=== PATIENT | female | born 1980 | race Caucasian/White ===

== ENCOUNTER 2017-10-03 14:25 | Emergency (ER) | payer OTHER | END 2017-10-03 17:52 | disposition home or self-care (01) | LOC: D.ER 14:25 | DX: B19.20 Unspecified viral hepatitis C without hepatic coma (principal); K74.60 Unspecified cirrhosis of liver; K21.9 Gastro-esophageal reflux disease without esophagitis ==

== ENCOUNTER 2017-10-12 11:57 | Emergency (ER) | payer OTHER | END 2017-10-12 12:45 | disposition home or self-care (01) | LOC: D.ER 11:57 | DX: R10.11 Right upper quadrant pain (principal); B19.20 Unspecified viral hepatitis C without hepatic coma; K74.60 Unspecified cirrhosis of liver; F17.200 Nicotine dependence, unspecified, uncomplicated ==

== ENCOUNTER 2017-10-15 09:17 | Emergency (ER) | payer OTHER ==
[2017-10-15 10:56] LABS: APPEARANCE CLEAR (CLEAR); BILIRUBIN NEGATIVE (NEGATIVE); COLOR YELLOW (YELLOW); GLUCOSE NEGATIVE (NEGATIVE); KETONE NEGATIVE (NEGATIVE); NITRITE NEGATIVE (NEGATIVE); PROTEIN NEGATIVE (NEGATIVE); SPECIFIC GRAVITY 1.015 (1.005-1.020); UROBILINOGEN NORMAL (NORMAL)
[2017-10-15 10:57] LABS: BASOPHILS 0.3 % (0-2); EOSINOPHILS 1.9 % (0-7); HEMOGLOBIN 13.9 g/dL (12-16); IMMATURE GRANULOCYTES 0.2 % (0-5); MCH 31.4 pg (26.0-34.0); MCHC 33.1 g/dL (31.0-37.0); MEAN PLATELET VOLUME 10.4 fL (7.4-10.4); MONOCYTES 9.5 % (2-11); NEUTROPHILS 68.1 % (40-80); PLATELET COUNT 195 10x3/uL (130-400); RBC 4.42 10x6/uL (4.00-5.40); RDW 12.1 % (11.5-14.5); WBC 5.8 10x3/uL (4.8-10.8)
[2017-10-15 11:12] LABS: ALBUMIN 3.4 g/dL (3.4-5.0); BILIRUBIN - TOTAL 0.2 mg/dL (0.2-1.3); CALCIUM 9.2 mg/dL (8.5-10.1); CARBON DIOXIDE 29.5 mmol/L (21.0-32.0); CREATININE - SERUM 1.1 mg/dL (0.6-1.3); POTASSIUM - SERUM 4.5 mmol/L (3.5-5.1); PROTEIN - SERUM 7.1 g/dL (6.4-8.2)
== END 2017-10-15 13:44 | disposition home or self-care (01) ==
LOC: D.ER 09:17
PROVIDERS: Physician Assistant
DX: R10.11 Right upper quadrant pain (principal); B19.20 Unspecified viral hepatitis C without hepatic coma; F17.200 Nicotine dependence, unspecified, uncomplicated

== ENCOUNTER 2017-10-22 11:04 | Emergency (ER) | payer OTHER | END 2017-10-22 14:12 | disposition home or self-care (01) | LOC: D.ER 11:04 | DX: R10.13 Epigastric pain (principal); B19.20 Unspecified viral hepatitis C without hepatic coma; K21.9 Gastro-esophageal reflux disease without esophagitis; F17.200 Nicotine dependence, unspecified, uncomplicated ==

== ENCOUNTER 2017-10-27 15:42 | Emergency (ER) | payer OTHER | END 2017-10-27 18:11 | disposition home or self-care (01) | LOC: D.ER 15:42 | DX: K02.9 Dental caries, unspecified (principal); K08.89 Other specified disorders of teeth and supporting structures; S02.5XXA Fracture of tooth (traumatic), initial encounter for closed fracture; X58.XXXA Exposure to other specified factors, initial encounter; Y93.89 Activity, other specified; Y92.019 Unspecified place in single-family (private) house as the place of occurrence of the external cause; K05.10 Chronic gingivitis, plaque induced; B19.20 Unspecified viral hepatitis C without hepatic coma ==

== ENCOUNTER 2017-10-29 11:51 | Emergency (ER) | payer OTHER | END 2017-10-29 13:41 | disposition home or self-care (01) | LOC: D.ER 11:51 | DX: K04.7 Periapical abscess without sinus (principal); K08.89 Other specified disorders of teeth and supporting structures; K21.9 Gastro-esophageal reflux disease without esophagitis; B19.20 Unspecified viral hepatitis C without hepatic coma ==

== ENCOUNTER 2017-11-04 19:05 | Emergency (ER) | payer OTHER ==
[2017-11-04 20:11] LABS: BASOPHILS 0.2 % (0-2); EOSINOPHILS 1.2 % (0-7); HEMOGLOBIN 13.9 g/dL (12-16); IMMATURE GRANULOCYTES 0.3 % (0-5); LYMPHOCYTES 33.8 % (15-50); MCH 31.7 pg (26.0-34.0); MCHC 33.9 g/dL (31.0-37.0); MCV 93.4 fL (80.0-100.0); NEUTROPHILS 58.5 % (40-80); RBC 4.39 10x6/uL (4.00-5.40); RDW 12.5 % (11.5-14.5); WBC 10.5 10x3/uL (4.8-10.8)
[2017-11-04 20:18] LABS: PLATELET COUNT 263 10x3/uL (130-400)
[2017-11-04 20:21] LABS: AMYLASE - SERUM 72 U/L (25-115); LIPASE 392 U/L (73-393)
[2017-11-04 20:33] LABS: COLOR PINK (YELLOW)
[2017-11-04 20:34] LABS: APPEARANCE CLOUDY (CLEAR); BACTERIA FEW /hpf (NONE SEEN); BILIRUBIN NEGATIVE (NEGATIVE); EPITHELIAL CELLS 0-5 /hpf (0-5); GLUCOSE NEGATIVE (NEGATIVE); KETONE NEGATIVE (NEGATIVE); NITRITE NEGATIVE (NEGATIVE); PROTEIN NEGATIVE (NEGATIVE); RED CELLS - URINE >50 /hpf (0-5); SPECIFIC GRAVITY 1.015 (1.005-1.020); UROBILINOGEN NORMAL (NORMAL); WHITE CELLS - URINE 0-5 /hpf (0-5)
[2017-11-04 21:34] LABS: ALBUMIN 3.4 g/dL (3.4-5.0); ANION GAP 16.7 mmol/L (8-16); BILIRUBIN - TOTAL 0.1 mg/dL (0.2-1.3); CARBON DIOXIDE 27.6 mmol/L (21.0-32.0); POTASSIUM - SERUM 4.3 mmol/L (3.5-5.1); PROTEIN - SERUM 7.9 g/dL (6.4-8.2)
== END 2017-11-04 22:43 | disposition home or self-care (01) ==
LOC: D.ER 19:05
PROVIDERS: Emergency Medicine
DX: R10.9 Unspecified abdominal pain (principal); N39.0 Urinary tract infection, site not specified; F12.90 Cannabis use, unspecified, uncomplicated

== ENCOUNTER 2017-11-10 14:10 | Emergency (ER) | payer OTHER ==
[2017-11-10 17:31] LABS: BASOPHILS 0.2 % (0-2); EOSINOPHILS 1.2 % (0-7); HEMATOCRIT 41.5 % (36.0-48.0); HEMOGLOBIN 13.8 g/dL (12-16); IMMATURE GRANULOCYTES 0.1 % (0-5); LYMPHOCYTES 35.4 % (15-50); MCH 31.4 pg (26.0-34.0); MCHC 33.3 g/dL (31.0-37.0); MCV 94.3 fL (80.0-100.0); MEAN PLATELET VOLUME 10.5 fL (7.4-10.4); MONOCYTES 4.4 % (2-11); NEUTROPHILS 58.7 % (40-80); RDW 12.8 % (11.5-14.5); WBC 8.3 10x3/uL (4.8-10.8)
[2017-11-10 17:32] LABS: PLATELET COUNT 206 10x3/uL (130-400)
== END 2017-11-10 18:09 | disposition home or self-care (01) ==
LOC: D.ER 14:10
PROVIDERS: Physician Assistant Medical
DX: K74.60 Unspecified cirrhosis of liver (principal); B19.20 Unspecified viral hepatitis C without hepatic coma; F17.200 Nicotine dependence, unspecified, uncomplicated

== ENCOUNTER 2017-11-14 19:51 | Emergency (ER) | payer OTHER ==
[2017-11-14 20:32] LABS: APPEARANCE HAZY (CLEAR); BILIRUBIN NEGATIVE (NEGATIVE); COLOR YELLOW (YELLOW); GLUCOSE NEGATIVE (NEGATIVE); KETONE NEGATIVE (NEGATIVE); NITRITE NEGATIVE (NEGATIVE); PROTEIN NEGATIVE (NEGATIVE); SPECIFIC GRAVITY 1.015 (1.005-1.020); UROBILINOGEN NORMAL (NORMAL)
[2017-11-14 20:34] LABS: AMYLASE - SERUM 73 U/L (25-115); LIPASE 404 U/L (73-393)
[2017-11-14 20:42] LABS: BACTERIA FEW /hpf (NONE SEEN); RED CELLS - URINE 0-5 /hpf (0-5)
[2017-11-14 20:46] LABS: HEMATOCRIT 42.1 % (36.0-48.0); HEMOGLOBIN 14.2 g/dL (12-16); LYMPHOCYTES 44.4 % (15-50); MCH 30.7 pg (26.0-34.0); MCHC 33.7 g/dL (31.0-37.0); MCV 91.1 fL (80.0-100.0); MEAN PLATELET VOLUME 10.7 fL (7.4-10.4); NEUTROPHILS 50.5 % (40-80); PLATELET COUNT 222 10x3/uL (130-400); RBC 4.62 10x6/uL (4.00-5.40); WBC 8.2 10x3/uL (4.8-10.8)
== END 2017-11-14 21:35 | disposition home or self-care (01) ==
LOC: D.ER 19:51
PROVIDERS: Family Medicine
DX: B19.20 Unspecified viral hepatitis C without hepatic coma (principal); N39.0 Urinary tract infection, site not specified

== ENCOUNTER 2017-11-17 15:46 | Emergency (ER) | payer OTHER | END 2017-11-17 17:55 | disposition left against medical advice (07) | LOC: D.ER 15:46 | DX: R10.84 Generalized abdominal pain (principal) ==

== ENCOUNTER 2017-11-18 14:36 | Emergency (ER) | payer OTHER ==
[2017-11-18 15:17] LABS: APPEARANCE CLEAR (CLEAR); BILIRUBIN NEGATIVE (NEGATIVE); COLOR YELLOW (YELLOW); GLUCOSE NEGATIVE (NEGATIVE); KETONE NEGATIVE (NEGATIVE); NITRITE NEGATIVE (NEGATIVE); PROTEIN NEGATIVE (NEGATIVE); SPECIFIC GRAVITY 1.015 (1.005-1.020); UROBILINOGEN NORMAL (NORMAL)
[2017-11-18 15:20] LABS: BACTERIA MODERATE /hpf (NONE SEEN); MUCUS <1+ /lpf (NONE SEEN); RED CELLS - URINE 0-5 /hpf (0-5)
== END 2017-11-18 15:49 | disposition home or self-care (01) ==
LOC: D.ER 14:36
PROVIDERS: Emergency Medicine
DX: R10.9 Unspecified abdominal pain (principal); B19.20 Unspecified viral hepatitis C without hepatic coma; K76.9 Liver disease, unspecified; F17.200 Nicotine dependence, unspecified, uncomplicated

== ENCOUNTER 2017-11-25 13:41 | Emergency (ER) | payer OTHER ==
[2017-11-25 14:45] LABS: BASOPHILS 0.3 % (0-2); EOSINOPHILS 1.4 % (0-7); HEMOGLOBIN 14.6 g/dL (12-16); IMMATURE GRANULOCYTES 0.5 % (0-5); MCH 30.8 pg (26.0-34.0); MCHC 33.2 g/dL (31.0-37.0); MCV 92.8 fL (80.0-100.0); MEAN PLATELET VOLUME 11.2 fL (7.4-10.4); MONOCYTES 4.1 % (2-11); NEUTROPHILS 66.7 % (40-80); RBC 4.74 10x6/uL (4.00-5.40); RDW 12.5 % (11.5-14.5); WBC 8.9 10x3/uL (4.8-10.8)
[2017-11-25 14:49] LABS: PLATELET COUNT 101 10x3/uL (130-400)
[2017-11-25 14:55] LABS: ALBUMIN 3.6 g/dL (3.4-5.0); ANION GAP 9.9 mmol/L (8-16); BILIRUBIN - TOTAL 0.2 mg/dL (0.2-1.3); CALCIUM 9.5 mg/dL (8.5-10.1); CARBON DIOXIDE 30.3 mmol/L (21.0-32.0); CREATININE - SERUM 1.1 mg/dL (0.6-1.3); POTASSIUM - SERUM 4.2 mmol/L (3.5-5.1); PROTEIN - SERUM 7.2 g/dL (6.4-8.2)
[2017-11-25 15:48] LABS: COLOR YELLOW (YELLOW)
[2017-11-25 15:49] LABS: APPEARANCE HAZY (CLEAR); BILIRUBIN NEGATIVE (NEGATIVE); GLUCOSE NEGATIVE (NEGATIVE); KETONE NEGATIVE (NEGATIVE); NITRITE NEGATIVE (NEGATIVE); PROTEIN NEGATIVE (NEGATIVE); UROBILINOGEN NORMAL (NORMAL)
[2017-11-25 15:50] LABS: BACTERIA MODERATE /hpf (NONE SEEN); EPITHELIAL CELLS OCC /hpf (0-5); RED CELLS - URINE OCC /hpf (0-5); WHITE CELLS - URINE 0-5 /hpf (0-5)
== END 2017-11-25 18:18 | disposition home or self-care (01) ==
LOC: D.ER 13:41
PROVIDERS: Family Medicine
DX: N39.0 Urinary tract infection, site not specified (principal); R10.9 Unspecified abdominal pain; R11.2 Nausea with vomiting, unspecified; B19.20 Unspecified viral hepatitis C without hepatic coma; K76.9 Liver disease, unspecified; F17.200 Nicotine dependence, unspecified, uncomplicated

== ENCOUNTER 2017-11-27 18:15 | Emergency (ER) | payer OTHER | END 2017-11-27 20:49 | disposition home or self-care (01) | LOC: D.ER 18:15 | DX: R10.9 Unspecified abdominal pain (principal); K74.60 Unspecified cirrhosis of liver; R11.10 Vomiting, unspecified ==

== ENCOUNTER 2017-11-28 14:16 | Emergency (ER) | payer OTHER ==
[2017-11-28 15:06] LABS: BASOPHILS 0.2 % (0-2); EOSINOPHILS 2.5 % (0-7); HEMATOCRIT 40.6 % (36.0-48.0); HEMOGLOBIN 13.4 g/dL (12-16); LYMPHOCYTES 40.4 % (15-50); MCH 31.2 pg (26.0-34.0); MCV 94.4 fL (80.0-100.0); MEAN PLATELET VOLUME 10.4 fL (7.4-10.4); MONOCYTES 5.1 % (2-11); NEUTROPHILS 51.8 % (40-80); RDW 12.8 % (11.5-14.5); WBC 9.1 10x3/uL (4.8-10.8)
[2017-11-28 15:17] LABS: PLATELET COUNT 207 10x3/uL (130-400)
[2017-11-28 15:20] LABS: ALBUMIN 3.3 g/dL (3.4-5.0); ANION GAP 8.7 mmol/L (8-16); BILIRUBIN - TOTAL 0.2 mg/dL (0.2-1.3); CALCIUM 9.1 mg/dL (8.5-10.1); CARBON DIOXIDE 29.2 mmol/L (21.0-32.0); CREATININE - SERUM 1.3 mg/dL (0.6-1.3); POTASSIUM - SERUM 3.9 mmol/L (3.5-5.1); PROTEIN - SERUM 7.3 g/dL (6.4-8.2)
[2017-11-28 18:09] LABS: APPEARANCE CLEAR (CLEAR); BACTERIA FEW /hpf (NONE SEEN); BILIRUBIN NEGATIVE (NEGATIVE); COLOR YELLOW (YELLOW); EPITHELIAL CELLS 0-5 /hpf (0-5); GLUCOSE NEGATIVE (NEGATIVE); HCG URINE NEGATIVE (NEGATIVE); KETONE NEGATIVE (NEGATIVE); NITRITE NEGATIVE (NEGATIVE); PROTEIN NEGATIVE (NEGATIVE); RED CELLS - URINE 0-5 /hpf (0-5); SPECIFIC GRAVITY 1.015 (1.005-1.020); UROBILINOGEN NORMAL (NORMAL)
== END 2017-11-28 19:08 | disposition home or self-care (01) ==
LOC: D.ER 14:16
PROVIDERS: Emergency Medicine
DX: E86.0 Dehydration (principal); R55 Syncope and collapse; F17.200 Nicotine dependence, unspecified, uncomplicated; K76.9 Liver disease, unspecified

== ENCOUNTER 2017-11-29 16:08 | Emergency (ER) | payer OTHER ==
[2017-11-29 17:36] LABS: BASOPHILS 0.2 % (0-2); EOSINOPHILS 2.7 % (0-7); HEMATOCRIT 39.5 % (36.0-48.0); HEMOGLOBIN 12.6 g/dL (12-16); IMMATURE GRANULOCYTES 0.1 % (0-5); LYMPHOCYTES 39.6 % (15-50); MCH 29.9 pg (26.0-34.0); MCHC 31.9 g/dL (31.0-37.0); MCV 93.6 fL (80.0-100.0); MEAN PLATELET VOLUME 10.4 fL (7.4-10.4); MONOCYTES 4.8 % (2-11); NEUTROPHILS 52.6 % (40-80); PLATELET COUNT 195 10x3/uL (130-400); RBC 4.22 10x6/uL (4.00-5.40); RDW 12.7 % (11.5-14.5); WBC 8.2 10x3/uL (4.8-10.8)
== END 2017-11-29 18:27 | disposition home or self-care (01) ==
LOC: D.ER 16:08
PROVIDERS: Nurse Practitioner Family
DX: R10.11 Right upper quadrant pain (principal); K74.60 Unspecified cirrhosis of liver

== ENCOUNTER 2017-12-02 14:16 | Emergency (ER) | payer OTHER ==
[2017-12-02 14:52] LABS: APPEARANCE CLEAR (CLEAR); BILIRUBIN NEGATIVE (NEGATIVE); COLOR YELLOW (YELLOW); GLUCOSE NEGATIVE (NEGATIVE); KETONE NEGATIVE (NEGATIVE); NITRITE NEGATIVE (NEGATIVE); PROTEIN NEGATIVE (NEGATIVE); UROBILINOGEN NORMAL (NORMAL)
[2017-12-02 16:12] LABS: BASOPHILS 0.2 % (0-2); EOSINOPHILS 1.5 % (0-7); HEMATOCRIT 39.7 % (36.0-48.0); HEMOGLOBIN 13.2 g/dL (12-16); IMMATURE GRANULOCYTES 0.1 % (0-5); LYMPHOCYTES 32.2 % (15-50); MCHC 33.2 g/dL (31.0-37.0); MCV 93.2 fL (80.0-100.0); MEAN PLATELET VOLUME 10.5 fL (7.4-10.4); MONOCYTES 4.8 % (2-11); NEUTROPHILS 61.2 % (40-80); PLATELET COUNT 187 10x3/uL (130-400); RBC 4.26 10x6/uL (4.00-5.40); RDW 12.8 % (11.5-14.5); WBC 9.2 10x3/uL (4.8-10.8)
[2017-12-02 16:50] LABS: ALBUMIN 3.2 g/dL (3.4-5.0); ANION GAP 10.5 mmol/L (8-16); BILIRUBIN - TOTAL 0.29 mg/dL (0.2-1.3); CALCIUM 8.8 mg/dL (8.5-10.1); CARBON DIOXIDE 28.7 mmol/L (21.0-32.0); CREATININE - SERUM 1.2 mg/dL (0.6-1.3); POTASSIUM - SERUM 4.2 mmol/L (3.5-5.1); PROTEIN - SERUM 7.3 g/dL (6.4-8.2)
== END 2017-12-02 17:48 | disposition home or self-care (01) ==
LOC: D.ER 14:16
PROVIDERS: Emergency Medicine; Physician Assistant
DX: R10.11 Right upper quadrant pain (principal); F17.200 Nicotine dependence, unspecified, uncomplicated; K76.9 Liver disease, unspecified

== ENCOUNTER 2017-12-09 11:39 | Emergency (ER) | payer OTHER ==
[2017-12-09 12:43] LABS: APPEARANCE CLOUDY (CLEAR); BILIRUBIN NEGATIVE (NEGATIVE); COLOR YELLOW (YELLOW); GLUCOSE NEGATIVE (NEGATIVE); KETONE NEGATIVE (NEGATIVE); NITRITE NEGATIVE (NEGATIVE); PROTEIN NEGATIVE (NEGATIVE); SPECIFIC GRAVITY 1.015 (1.005-1.020); UROBILINOGEN NORMAL (NORMAL)
[2017-12-09 12:45] LABS: BACTERIA MODERATE /hpf (NONE SEEN); MUCUS >1+ /lpf (NONE SEEN); RED CELLS - URINE OCC /hpf (0-5)
== END 2017-12-09 13:17 | disposition home or self-care (01) ==
LOC: D.ER 11:39
PROVIDERS: Emergency Medicine
DX: N39.0 Urinary tract infection, site not specified (principal); K76.9 Liver disease, unspecified

== ENCOUNTER 2017-12-20 20:01 | Inpatient (IN) | payer OTHER ==
[~2017-12-20] VITALS: Ht 152.4 cm; Wt 86.2 kg
[2017-12-20 20:24] LABS: APPEARANCE HAZY (CLEAR); BACTERIA NONE SEEN /hpf (NONE SEEN); BILIRUBIN NEGATIVE (NEGATIVE); COLOR PINK (YELLOW); EPITHELIAL CELLS 0-5 /hpf (0-5); GLUCOSE NEGATIVE (NEGATIVE); KETONE NEGATIVE (NEGATIVE); NITRITE NEGATIVE (NEGATIVE); PROTEIN NEGATIVE (NEGATIVE); RED CELLS - URINE >50 /hpf (0-5); SPECIFIC GRAVITY 1.005 (1.005-1.020); UROBILINOGEN NORMAL (NORMAL); WHITE CELLS - URINE 0-5 /hpf (0-5)
[2017-12-20 21:05] LABS: BASOPHILS 0.3 % (0-2); EOSINOPHILS 0.9 % (0-7); HEMATOCRIT 39.1 % (36.0-48.0); HEMOGLOBIN 12.5 g/dL (12-16); IMMATURE GRANULOCYTES 1.1 % (0-5); LYMPHOCYTES 30.1 % (15-50); MCH 30.4 pg (26.0-34.0); MCV 95.1 fL (80.0-100.0); MEAN PLATELET VOLUME 10.5 fL (7.4-10.4); MONOCYTES 5.3 % (2-11); NEUTROPHILS 62.3 % (40-80); PLATELET COUNT 218 10x3/uL (130-400); RBC 4.11 10x6/uL (4.00-5.40); RDW 12.7 % (11.5-14.5); WBC 10.8 10x3/uL (4.8-10.8)
[2017-12-20 21:35] LABS: ALBUMIN 2.6 g/dL (3.4-5.0); ALKALINE PHOSPHATASE 70 U/L (46-116); ALT (SGPT) 24 U/L (10-68); BILIRUBIN - TOTAL 0.33 mg/dL (0.2-1.3); CALC OSMOLALITY 280 mosm/kg (275-300); CALCIUM 9.3 mg/dL (8.5-10.1); CARBON DIOXIDE 36.1 mmol/L (21.0-32.0); CHLORIDE - SERUM 99 mmol/L (98-107); GLUCOSE 91 mg/dL (74-106); PROTEIN - SERUM 7.4 g/dL (6.4-8.2); SODIUM 139 mmol/L (136-145); UREA NITROGEN 20 mg/dL (7-18); eGFR NON AFRICAN AMERICAN 67 mL/min (90-120)
[2017-12-20 21:43] LABS: CREATINE KINASE 53 UL (21-215); MAGNESIUM - SERUM 1.9 mg/dL (1.8-2.4); PRO BNP 343 pg/mL (0-125); TROPONIN-I < 0.017 ng/mL (0.000-0.060)
[2017-12-20 21:44] LABS: HCG URINE NEGATIVE (NEGATIVE)
[2017-12-21 13:15] LABS: UDS - AMPHET NEGATIVE QUAL (NEGATIVE); UDS - BARB NEGATIVE QUAL (NEGATIVE); UDS - BENZO NEGATIVE QUAL (NEGATIVE); UDS - COCAINE NEGATIVE QUAL (NEGATIVE); UDS - OPIATE POSITIVE QUAL (NEGATIVE); UDS - PCP NEGATIVE QUAL (NEGATIVE); UDS - THC NEGATIVE QUAL (NEGATIVE)
== END 2017-12-21 13:44 | disposition left against medical advice (07) | DRG 193 ==
LOC: D.ER 20:01 → D.EDHOLD 23:29
PROVIDERS: Emergency Medicine; Physician Assistant Medical
DX: J18.9 Pneumonia, unspecified organism (principal); J96.01 Acute respiratory failure with hypoxia; J44.0 Chronic obstructive pulmonary disease with (acute) lower respiratory infection; B19.20 Unspecified viral hepatitis C without hepatic coma; I10 Essential (primary) hypertension; Z72.0 Tobacco use

== ENCOUNTER 2018-01-01 15:40 | Emergency (ER) | payer OTHER | END 2018-01-01 17:39 | disposition home or self-care (01) | LOC: D.ER 15:40 | DX: K04.7 Periapical abscess without sinus (principal); K08.89 Other specified disorders of teeth and supporting structures; F17.200 Nicotine dependence, unspecified, uncomplicated ==

== ENCOUNTER 2018-01-12 20:12 | Emergency (ER) | payer OTHER | END 2018-01-12 22:02 | disposition home or self-care (01) | LOC: D.ER 20:12 | DX: R10.84 Generalized abdominal pain (principal) ==

== ENCOUNTER 2018-01-13 12:59 | Emergency (ER) | payer OTHER ==
[2018-01-13 13:53] LABS: BASOPHILS 0.3 % (0-2); EOSINOPHILS 1.6 % (0-7); HEMATOCRIT 38.9 % (36.0-48.0); HEMOGLOBIN 12.9 g/dL (12-16); IMMATURE GRANULOCYTES 0.2 % (0-5); MCH 30.7 pg (26.0-34.0); MCHC 33.2 g/dL (31.0-37.0); MCV 92.6 fL (80.0-100.0); MEAN PLATELET VOLUME 10.3 fL (7.4-10.4); MONOCYTES 5.5 % (2-11); NEUTROPHILS 57.4 % (40-80); PLATELET COUNT 207 10x3/uL (130-400); RDW 13.3 % (11.5-14.5); WBC 6.2 10x3/uL (4.8-10.8)
[2018-01-13 13:58] LABS: ALBUMIN 3.2 g/dL (3.4-5.0); BILIRUBIN - TOTAL 0.42 mg/dL (0.2-1.3); CALCIUM 9.1 mg/dL (8.5-10.1); CARBON DIOXIDE 27.6 mmol/L (21.0-32.0); POTASSIUM - SERUM 3.6 mmol/L (3.5-5.1); PROTEIN - SERUM 7.1 g/dL (6.4-8.2)
== END 2018-01-13 14:22 | disposition home or self-care (01) ==
LOC: D.ER 12:59
PROVIDERS: Emergency Medicine
DX: B19.20 Unspecified viral hepatitis C without hepatic coma (principal); F17.200 Nicotine dependence, unspecified, uncomplicated

== ENCOUNTER 2018-02-03 20:49 | Emergency (ER) | payer OTHER ==
[2018-02-03 21:42] LABS: APPEARANCE CLEAR (CLEAR); BILIRUBIN NEGATIVE (NEGATIVE); COLOR YELLOW (YELLOW); GLUCOSE NEGATIVE (NEGATIVE); KETONE NEGATIVE (NEGATIVE); NITRITE NEGATIVE (NEGATIVE); PROTEIN NEGATIVE (NEGATIVE); SPECIFIC GRAVITY 1.015 (1.005-1.020); UROBILINOGEN NORMAL (NORMAL)
[2018-02-03 21:43] LABS: RED CELLS - URINE OCC /hpf (0-5); WHITE CELLS - URINE 0-5 /hpf (0-5)
[2018-02-03 21:44] LABS: BACTERIA FEW /hpf (NONE SEEN); EPITHELIAL CELLS OCC /hpf (0-5)
[2018-02-03 21:45] LABS: BASOPHILS 0.2 % (0-2); EOSINOPHILS 1.9 % (0-7); HEMATOCRIT 40.1 % (36.0-48.0); HEMOGLOBIN 13.1 g/dL (12-16); IMMATURE GRANULOCYTES 0.1 % (0-5); LYMPHOCYTES 39.2 % (15-50); MCH 30.5 pg (26.0-34.0); MCHC 32.7 g/dL (31.0-37.0); MCV 93.3 fL (80.0-100.0); MEAN PLATELET VOLUME 9.9 fL (7.4-10.4); MONOCYTES 6.2 % (2-11); NEUTROPHILS 52.4 % (40-80); PLATELET COUNT 223 10x3/uL (130-400); RDW 13.2 % (11.5-14.5); WBC 9.3 10x3/uL (4.8-10.8)
[2018-02-03 22:00] LABS: ALBUMIN 3.3 g/dL (3.4-5.0); ANION GAP 13.3 mmol/L (8-16); BILIRUBIN - TOTAL 0.2 mg/dL (0.2-1.3); CALCIUM 8.7 mg/dL (8.5-10.1); CARBON DIOXIDE 25.9 mmol/L (21.0-32.0); CREATININE - SERUM 1.3 mg/dL (0.6-1.3); POTASSIUM - SERUM 4.2 mmol/L (3.5-5.1); PROTEIN - SERUM 7.3 g/dL (6.4-8.2)
== END 2018-02-03 23:29 | disposition home or self-care (01) ==
LOC: D.ER 20:49
PROVIDERS: Emergency Medicine
DX: R10.11 Right upper quadrant pain (principal); K74.60 Unspecified cirrhosis of liver; F17.200 Nicotine dependence, unspecified, uncomplicated; J44.9 Chronic obstructive pulmonary disease, unspecified

== ENCOUNTER 2018-02-04 13:07 | Emergency (ER) | payer OTHER | END 2018-02-04 16:15 | disposition home or self-care (01) | LOC: D.ER 13:07 | DX: R10.11 Right upper quadrant pain (principal); F17.200 Nicotine dependence, unspecified, uncomplicated; J44.9 Chronic obstructive pulmonary disease, unspecified ==

== ENCOUNTER 2018-02-10 13:33 | Emergency (ER) | payer OTHER ==
[2018-02-10 15:02] LABS: APPEARANCE CLEAR (CLEAR); BILIRUBIN NEGATIVE (NEGATIVE); COLOR YELLOW (YELLOW); GLUCOSE NEGATIVE (NEGATIVE); HCG URINE NEGATIVE (NEGATIVE); KETONE NEGATIVE (NEGATIVE); NITRITE NEGATIVE (NEGATIVE); PROTEIN NEGATIVE (NEGATIVE); UROBILINOGEN NORMAL (NORMAL)
[2018-02-10 15:26] LABS: BASOPHILS 0.2 % (0-2); EOSINOPHILS 1.4 % (0-7); HEMATOCRIT 39.2 % (36.0-48.0); IMMATURE GRANULOCYTES 0.1 % (0-5); MCH 30.2 pg (26.0-34.0); MCHC 33.2 g/dL (31.0-37.0); MEAN PLATELET VOLUME 10.1 fL (7.4-10.4); MONOCYTES 5.5 % (2-11); NEUTROPHILS 61.8 % (40-80); PLATELET COUNT 245 10x3/uL (130-400); RBC 4.31 10x6/uL (4.00-5.40); RDW 13.1 % (11.5-14.5); WBC 9.4 10x3/uL (4.8-10.8)
[2018-02-10 15:47] LABS: ALBUMIN 3.1 g/dL (3.4-5.0); ANION GAP 10.9 mmol/L (8-16); BILIRUBIN - TOTAL 0.2 mg/dL (0.2-1.3); CALCIUM 8.8 mg/dL (8.5-10.1); POTASSIUM - SERUM 3.9 mmol/L (3.5-5.1); PROTEIN - SERUM 7.1 g/dL (6.4-8.2)
== END 2018-02-10 17:10 | disposition home or self-care (01) ==
LOC: D.ER 13:33
PROVIDERS: Family Medicine
DX: B19.20 Unspecified viral hepatitis C without hepatic coma (principal); R10.9 Unspecified abdominal pain; F17.200 Nicotine dependence, unspecified, uncomplicated; J44.9 Chronic obstructive pulmonary disease, unspecified

== ENCOUNTER → 2018-02-16 12:59 | Emergency (ER) | payer OTHER | END | disposition left against medical advice (07) | LOC: D.ER 12:59 | DX: Z02.9 Encounter for administrative examinations, unspecified (principal) ==

== ENCOUNTER 2018-03-13 18:21 | Emergency (ER) | payer OTHER ==
[~2018-03-13] VITALS: Ht 152.4 cm; Wt 79.5 kg
[2018-03-13 18:37] VITALS: BP 105/65; Ht 152.4 cm; Wt 79.5 kg
== END 2018-03-13 20:55 | disposition left against medical advice (07) ==
LOC: D.ER 18:21
DX: R52 Pain, unspecified (principal); Z91.81 History of falling

== ENCOUNTER 2018-03-17 15:02 | Emergency (ER) | payer OTHER ==
[~2018-03-17] VITALS: Ht 160 cm; Wt 77.3 kg
[2018-03-17 15:18] VITALS: Ht 160 cm; Wt 77.3 kg
[2018-03-17 15:57] LABS: APPEARANCE CLEAR (CLEAR); COLOR YELLOW (YELLOW); SPECIFIC GRAVITY 1.015 (1.005-1.020)
[2018-03-17 15:58] LABS: BILIRUBIN NEGATIVE (NEGATIVE); GLUCOSE NEGATIVE (NEGATIVE); KETONE NEGATIVE (NEGATIVE); NITRITE NEGATIVE (NEGATIVE); PROTEIN NEGATIVE (NEGATIVE); UROBILINOGEN NORMAL (NORMAL)
[2018-03-17 16:05] LABS: BASOPHILS 0.2 % (0-2); EOSINOPHILS 0.9 % (0-7); HEMATOCRIT 38.2 % (36.0-48.0); HEMOGLOBIN 12.7 g/dL (12-16); IMMATURE GRANULOCYTES 0.1 % (0-5); LYMPHOCYTES 28.1 % (15-50); MCH 29.7 pg (26.0-34.0); MCHC 33.2 g/dL (31.0-37.0); MCV 89.3 fL (80.0-100.0); MEAN PLATELET VOLUME 10.3 fL (7.4-10.4); MONOCYTES 4.8 % (2-11); NEUTROPHILS 65.9 % (40-80); PLATELET COUNT 228 10x3/uL (130-400); RBC 4.28 10x6/uL (4.00-5.40); RDW 13.5 % (11.5-14.5); WBC 8.7 10x3/uL (4.8-10.8)
[2018-03-17 16:23] LABS: ALBUMIN 3.3 g/dL (3.4-5.0); ANION GAP 13.5 mmol/L (8-16); BILIRUBIN - TOTAL 0.23 mg/dL (0.2-1.3); CALCIUM 9.3 mg/dL (8.5-10.1); CARBON DIOXIDE 27.3 mmol/L (21.0-32.0); POTASSIUM - SERUM 3.8 mmol/L (3.5-5.1); PROTEIN - SERUM 7.6 g/dL (6.4-8.2)
[2018-03-17] MEDS ORDERED: HYDROCODONE-APA1 TAB PO (18:01)
[2018-03-17 18:48] LABS: UDS - AMPHET NEGATIVE QUAL (NEGATIVE); UDS - BARB NEGATIVE QUAL (NEGATIVE); UDS - BENZO NEGATIVE QUAL (NEGATIVE); UDS - COCAINE NEGATIVE QUAL (NEGATIVE); UDS - OPIATE NEGATIVE QUAL (NEGATIVE); UDS - PCP NEGATIVE QUAL (NEGATIVE); UDS - THC POSITIVE QUAL (NEGATIVE)
[2018-03-17 18:53] VITALS: BP 130/82
== END 2018-03-17 18:54 | disposition home or self-care (01) ==
LOC: D.ER 15:02
PROVIDERS: Family Medicine
DX: R10.9 Unspecified abdominal pain (principal); R11.0 Nausea; K74.60 Unspecified cirrhosis of liver; F17.200 Nicotine dependence, unspecified, uncomplicated

== ENCOUNTER 2018-03-21 17:57 | Emergency (ER) | payer OTHER ==
[~2018-03-21] VITALS: Ht 160 cm; Wt 77.3 kg
[~2018-03-21 17:57] MED LIST: HYDROCODONE-APA1 TAB PO
[2018-03-21 18:13] VITALS: Ht 160 cm; Wt 77.3 kg
[2018-03-21] MEDS ORDERED: TOPROL XL25 MG PO (18:15)
[2018-03-21] MEDS ORDERED: PROZAC40 MG PO (18:15)
[2018-03-21] MEDS ORDERED: NEURONTIN800 MG PO (18:15)
[2018-03-21] MEDS ORDERED: ZYRTEC10 MG PO (18:16)
[2018-03-21] MEDS ORDERED: OMEPRAZOLE20 M1 PO (18:16)
[2018-03-21] MEDS ORDERED: BUSPAR 15 MG TA15 MG PO (18:16)
[2018-03-21] MEDS ORDERED: TYLENOL W/CODEI1 TAB PO (18:49)
[2018-03-21] MEDS ORDERED: CLEOCIN HCL300 MG PO (18:49)
[2018-03-21 19:26] VITALS: BP 130/97
== END 2018-03-21 19:17 | disposition home or self-care (01) ==
LOC: D.ER 17:57
DX: K04.7 Periapical abscess without sinus (principal); K08.89 Other specified disorders of teeth and supporting structures; K74.60 Unspecified cirrhosis of liver; K21.9 Gastro-esophageal reflux disease without esophagitis; F17.200 Nicotine dependence, unspecified, uncomplicated

== ENCOUNTER 2018-03-25 15:15 | Emergency (ER) | payer OTHER ==
[~2018-03-25] VITALS: Ht 160 cm; Wt 77.3 kg
[~2018-03-25 15:15] MED LIST changes: +BUSPAR 15 MG TA15 MG PO; +CLEOCIN HCL300 MG PO; +NEURONTIN800 MG PO; +OMEPRAZOLE20 M1 PO; +PROZAC40 MG PO; +TOPROL XL25 MG PO; +TYLENOL W/CODEI1 TAB PO; +ZYRTEC10 MG PO
[2018-03-25 15:29] VITALS: Ht 160 cm; Wt 77.3 kg
[2018-03-25 16:36] LABS: BASOPHILS 0.2 % (0-2); EOSINOPHILS 2.4 % (0-7); HEMATOCRIT 35.7 % (36.0-48.0); HEMOGLOBIN 11.4 g/dL (12-16); IMMATURE GRANULOCYTES 0.2 % (0-5); LYMPHOCYTES 28.6 % (15-50); MCH 29.1 pg (26.0-34.0); MCHC 31.9 g/dL (31.0-37.0); MCV 91.1 fL (80.0-100.0); MEAN PLATELET VOLUME 10.5 fL (7.4-10.4); MONOCYTES 6.8 % (2-11); NEUTROPHILS 61.8 % (40-80); PLATELET COUNT 235 10x3/uL (130-400); RBC 3.92 10x6/uL (4.00-5.40); RDW 13.8 % (11.5-14.5); WBC 8.4 10x3/uL (4.8-10.8)
[2018-03-25 16:59] LABS: ANION GAP 7.4 mmol/L (8-16); BILIRUBIN - TOTAL 0.13 mg/dL (0.2-1.3); CALCIUM 8.9 mg/dL (8.5-10.1); CARBON DIOXIDE 30.3 mmol/L (21.0-32.0); CREATININE - SERUM 1.1 mg/dL (0.6-1.3); POTASSIUM - SERUM 3.7 mmol/L (3.5-5.1); PROTEIN - SERUM 6.8 g/dL (6.4-8.2)
[2018-03-25 17:00] LABS: UDS - AMPHET NEGATIVE QUAL (NEGATIVE); UDS - BARB NEGATIVE QUAL (NEGATIVE); UDS - BENZO NEGATIVE QUAL (NEGATIVE); UDS - COCAINE NEGATIVE QUAL (NEGATIVE); UDS - OPIATE NEGATIVE QUAL (NEGATIVE); UDS - PCP NEGATIVE QUAL (NEGATIVE); UDS - THC POSITIVE QUAL (NEGATIVE)
[2018-03-25] MEDS ORDERED: OXYCODONE HCL5 MG PO (17:11)
[2018-03-25] MEDS ORDERED: ZOFRAN ODT4 MG/UDTAB PO (17:11)
[2018-03-25 17:15] VITALS: BP 118/76
[2018-03-25 17:27] LABS: APPEARANCE CLEAR (CLEAR); BILIRUBIN NEGATIVE (NEGATIVE); COLOR TAN (YELLOW); GLUCOSE NEGATIVE (NEGATIVE); KETONE NEGATIVE (NEGATIVE); NITRITE NEGATIVE (NEGATIVE); PROTEIN NEGATIVE (NEGATIVE); UROBILINOGEN NORMAL (NORMAL)
[2018-03-25 17:31] LABS: BACTERIA MODERATE /hpf (NONE SEEN); EPITHELIAL CELLS 0-5 /hpf (0-5); RED CELLS - URINE 0-5 /hpf (0-5); WHITE CELLS - URINE 0-5 /hpf (0-5)
== END 2018-03-25 17:14 | disposition home or self-care (01) ==
LOC: D.ER 15:15
PROVIDERS: Family Medicine
DX: K74.60 Unspecified cirrhosis of liver (principal); B19.20 Unspecified viral hepatitis C without hepatic coma; F17.200 Nicotine dependence, unspecified, uncomplicated

== ENCOUNTER 2018-03-25 19:51 | Emergency (ER) | payer OTHER ==
[~2018-03-25] VITALS: Ht 160 cm; Wt 77.3 kg
[~2018-03-25 19:51] MED LIST changes: +OXYCODONE HCL5 MG PO; +ZOFRAN ODT4 MG/UDTAB PO
[2018-03-25 19:57] VITALS: BP 136/82; Ht 160 cm; Wt 77.3 kg
== END 2018-03-25 20:33 | disposition home or self-care (01) ==
LOC: D.ER 19:51
DX: R10.9 Unspecified abdominal pain (principal); K74.60 Unspecified cirrhosis of liver; F17.200 Nicotine dependence, unspecified, uncomplicated

== ENCOUNTER 2018-03-28 12:51 | Emergency (ER) | payer OTHER ==
[~2018-03-28] VITALS: Ht 160 cm; Wt 90.9 kg
[2018-03-28 13:07] VITALS: Ht 160 cm; Wt 90.9 kg
[2018-03-28] MEDS ORDERED: IBUPROFEN800 MG PO (13:46)
[2018-03-28 14:50] VITALS: BP 118/73
== END 2018-03-28 14:50 | disposition home or self-care (01) ==
LOC: D.ER 12:51
DX: R10.11 Right upper quadrant pain (principal); B19.20 Unspecified viral hepatitis C without hepatic coma

== ENCOUNTER 2018-04-02 11:24 | Emergency (ER) | payer OTHER ==
[~2018-04-02] VITALS: Ht 160 cm; Wt 90.9 kg
[~2018-04-02 11:24] MED LIST changes: +IBUPROFEN800 MG PO
[2018-04-02 11:39] VITALS: BP 132/93; Ht 160 cm; Wt 90.9 kg
[2018-04-02 12:11] LABS: APPEARANCE HAZY (CLEAR); COLOR YELLOW (YELLOW)
[2018-04-02 12:12] LABS: BILIRUBIN NEGATIVE (NEGATIVE); GLUCOSE NEGATIVE (NEGATIVE); KETONE NEGATIVE (NEGATIVE); NITRITE NEGATIVE (NEGATIVE); PROTEIN NEGATIVE (NEGATIVE); UROBILINOGEN NORMAL (NORMAL)
[2018-04-02 12:14] LABS: BACTERIA FEW /hpf (NONE SEEN); EPITHELIAL CELLS 0-5 /hpf (0-5); RED CELLS - URINE 0-5 /hpf (0-5); WHITE CELLS - URINE RARE /hpf (0-5)
[2018-04-02 12:16] LABS: MUCUS <1+ /lpf (NONE SEEN)
[2018-04-02 13:07] LABS: BASOPHILS 0.2 % (0-2); EOSINOPHILS 1.5 % (0-7); HEMATOCRIT 38.6 % (36.0-48.0); HEMOGLOBIN 12.4 g/dL (12-16); IMMATURE GRANULOCYTES 0.1 % (0-5); LYMPHOCYTES 29.6 % (15-50); MCH 28.9 pg (26.0-34.0); MCHC 32.1 g/dL (31.0-37.0); MEAN PLATELET VOLUME 10.3 fL (7.4-10.4); MONOCYTES 3.9 % (2-11); NEUTROPHILS 64.7 % (40-80); PLATELET COUNT 265 10x3/uL (130-400); RBC 4.29 10x6/uL (4.00-5.40); RDW 13.7 % (11.5-14.5); WBC 8.5 10x3/uL (4.8-10.8)
[2018-04-02 13:25] LABS: ALBUMIN 3.4 g/dL (3.4-5.0); ALKALINE PHOSPHATASE 73 U/L (46-116); ALT (SGPT) 22 U/L (10-68); BILIRUBIN - TOTAL 0.24 mg/dL (0.2-1.3); CALC OSMOLALITY 284 mosm/kg (275-300); CALCIUM 8.8 mg/dL (8.5-10.1); CARBON DIOXIDE 26.5 mmol/L (21.0-32.0); CHLORIDE - SERUM 108 mmol/L (98-107); GLUCOSE 89 mg/dL (74-106); POTASSIUM - SERUM 4.1 mmol/L (3.5-5.1); SODIUM 143 mmol/L (136-145); UREA NITROGEN 14 mg/dL (7-18); eGFR NON AFRICAN AMERICAN 67 mL/min (90-120)
[2018-04-02 13:29] LABS: AMYLASE - SERUM 63 U/L (25-115); LIPASE 264 U/L (73-393); TROPONIN-I < 0.017 ng/mL (0.000-0.060)
[2018-04-02] MEDS ORDERED: LEVSIN/ANASP0.125 MG PO (17:48)
[2018-04-02] MEDS ORDERED: FLORASTOR250 MG PO (17:48)
[2018-04-02] MEDS ORDERED: PROTONIX40 MG PO (17:48)
== END 2018-04-02 18:24 | disposition home or self-care (01) ==
LOC: D.ER 11:24
PROVIDERS: Family Medicine
DX: R10.11 Right upper quadrant pain (principal); R11.0 Nausea; N83.201 Unspecified ovarian cyst, right side; F17.200 Nicotine dependence, unspecified, uncomplicated; B19.20 Unspecified viral hepatitis C without hepatic coma; K74.60 Unspecified cirrhosis of liver

== ENCOUNTER 2018-04-14 16:35 | Emergency (ER) | payer OTHER ==
[~2018-04-14] VITALS: Ht 160 cm; Wt 77.3 kg
[~2018-04-14 16:35] MED LIST changes: +FLORASTOR250 MG PO; +LEVSIN/ANASP0.125 MG PO; +PROTONIX40 MG PO
[2018-04-14 16:57] VITALS: Ht 160 cm; Wt 77.3 kg
[2018-04-14 21:21] LABS: BASOPHILS 0.2 % (0-2); EOSINOPHILS 2.6 % (0-7); HEMATOCRIT 36.3 % (36.0-48.0); HEMOGLOBIN 11.5 g/dL (12-16); IMMATURE GRANULOCYTES 0.1 % (0-5); MCH 28.8 pg (26.0-34.0); MCHC 31.7 g/dL (31.0-37.0); MEAN PLATELET VOLUME 9.9 fL (7.4-10.4); MONOCYTES 5.3 % (2-11); NEUTROPHILS 57.8 % (40-80); RBC 3.99 10x6/uL (4.00-5.40); WBC 8.3 10x3/uL (4.8-10.8)
[2018-04-14 21:43] LABS: PLATELET COUNT 188 10x3/uL (130-400)
[2018-04-14 21:50] LABS: APTT 31.9 SECONDS (22.8-39.4); PROTIME 12.8 SECONDS (11.6-15.0)
[2018-04-14] MEDS ORDERED: TORADOL10 MG PO (22:41)
[2018-04-14] MEDS ORDERED: FUROSEMIDE10 MG/M1 IV (22:43)
[2018-04-14] MEDS ORDERED: K-TAB10 MEQ PO (22:43)
[2018-04-14 22:57] VITALS: BP 105/62
== END 2018-04-14 22:57 | disposition home or self-care (01) ==
LOC: D.ER 16:35
PROVIDERS: Emergency Medicine
DX: R60.0 Localized edema (principal); K74.60 Unspecified cirrhosis of liver; M79.662 Pain in left lower leg; M79.661 Pain in right lower leg; F17.200 Nicotine dependence, unspecified, uncomplicated

== ENCOUNTER 2018-04-21 20:29 | Emergency (ER) | payer OTHER ==
[~2018-04-21] VITALS: Ht 160 cm; Wt 79.5 kg
[~2018-04-21 20:29] MED LIST changes: +FUROSEMIDE10 MG/M1 IV; +K-TAB10 MEQ PO; +TORADOL10 MG PO
[2018-04-21 20:35] VITALS: BP 131/94; Ht 160 cm; Wt 79.5 kg
[2018-04-21 21:36] LABS: BASOPHILS 0.2 % (0-2); EOSINOPHILS 2.3 % (0-7); HEMATOCRIT 37.5 % (36.0-48.0); HEMOGLOBIN 11.8 g/dL (12-16); IMMATURE GRANULOCYTES 0.1 % (0-5); LYMPHOCYTES 36.6 % (15-50); MCH 28.3 pg (26.0-34.0); MCHC 31.5 g/dL (31.0-37.0); MCV 89.9 fL (80.0-100.0); MONOCYTES 4.8 % (2-11); PLATELET COUNT 206 10x3/uL (130-400); RBC 4.17 10x6/uL (4.00-5.40); RDW 13.9 % (11.5-14.5); WBC 8.3 10x3/uL (4.8-10.8)
[2018-04-21 21:55] LABS: ALBUMIN 3.4 g/dL (3.4-5.0); ANION GAP 12.1 mmol/L (8-16); BILIRUBIN - TOTAL 0.25 mg/dL (0.2-1.3); CALCIUM 8.9 mg/dL (8.5-10.1); CARBON DIOXIDE 30.7 mmol/L (21.0-32.0); CREATININE - SERUM 1.1 mg/dL (0.6-1.3); POTASSIUM - SERUM 3.8 mmol/L (3.5-5.1); PROTEIN - SERUM 7.6 g/dL (6.4-8.2)
== END 2018-04-21 23:48 | disposition home or self-care (01) ==
LOC: D.ER 20:29
PROVIDERS: Family Medicine
DX: R60.0 Localized edema (principal); F17.200 Nicotine dependence, unspecified, uncomplicated

== ENCOUNTER 2018-06-30 21:56 | Emergency (ER) | payer OTHER ==
[~2018-06-30] VITALS: Ht 160 cm; Wt 72.7 kg
[2018-06-30 22:09] VITALS: Ht 160 cm; Wt 72.7 kg
[2018-06-30] MEDS ORDERED: TORADOL10 MG PO (23:44)
[2018-07-01 00:10] VITALS: BP 108/61
== END 2018-07-01 00:10 | disposition home or self-care (01) ==
LOC: D.ER 21:56
DX: S99.911A Unspecified injury of right ankle, initial encounter (principal); X50.1XXA Overexertion from prolonged static or awkward postures, initial encounter; Y93.89 Activity, other specified; Y92.019 Unspecified place in single-family (private) house as the place of occurrence of the external cause; F17.200 Nicotine dependence, unspecified, uncomplicated

== ENCOUNTER 2018-07-19 18:27 | Emergency (ER) | payer OTHER ==
[2018-07-19 18:32] VITALS: Ht 160 cm
[2018-07-19] MEDS ORDERED: ULTRAM50 MG PO (19:52)
[2018-07-19] MEDS ORDERED: MEDROL DOSE PACK4 MG PO (19:55)
[2018-07-19] MEDS ORDERED: ROBAXIN500 MG PO (19:55)
[2018-07-19 20:17] VITALS: BP 130/80
== END 2018-07-19 20:17 | disposition home or self-care (01) ==
LOC: D.ER 18:27
DX: S46.012A Strain of muscle(s) and tendon(s) of the rotator cuff of left shoulder, initial encounter (principal); W18.30XA Fall on same level, unspecified, initial encounter; Y93.89 Activity, other specified; Y92.89 Other specified places as the place of occurrence of the external cause; K74.60 Unspecified cirrhosis of liver; G62.9 Polyneuropathy, unspecified; R00.0 Tachycardia, unspecified; K21.9 Gastro-esophageal reflux disease without esophagitis